=== PATIENT | female | born 1940 | race Caucasian/White ===

== ENCOUNTER 2021-03-06 13:44 | Emergency (ER) | payer MEDICARE, MEDICAID ==
[~2021-03-06] VITALS: Ht 157.5 cm; Wt 69.1 kg
[~2021-03-06 13:44] MED LIST: ALBU18HF2 IH; ASPI81TA52 PO; CLON-527 PO; CLOP75TA34 PO; DICL100G30 TOP; DOXE3TAB3 PO; FLUT16SP BOTHNARES; GABA300C PO; HYDR-3965 PO; LEVO150T8 PO; LISI10TA27 PO; MAGN400C PO; MECL-159 PO; MONT10TA32 PO; OMEP40CA21 PO; ONDA4TAB6 PO; PROP40TA72 PO; QUET25TA36 PO
[2021-03-06 13:55] VITALS: BP 125/68
== END 2021-03-07 01:28 | disposition left against medical advice (07) ==
LOC: ER 13:45
DX: M25.562 Pain in left knee (principal); Z53.21 Procedure and treatment not carried out due to patient leaving prior to being seen by health care provider
CPT/HCPCS: 73564